=== PATIENT | male | born 1955 | race African-American/Black ===

== ENCOUNTER 2022-10-20 11:20 | Inpatient (IN) | payer MEDICAID ==
[~2022-10-20] VITALS: Ht 175.3 cm; Wt 81.2 kg
[2022-10-20 13:11] LABS: BASOPHILS % 0.9 % (0.0-2.0); EOSINOPHILS % 0.5 % (0.0-5.0); HEMATOCRIT. 37.5 % (42.0-52.0); HEMOGLOBIN. 12.2 g/dL (14.0-18.0); LYMPHOCYTES % 14.3 % (20.0-50.0); MEAN CORPUSCULAR HEMOGLOBIN 25.2 pg (28.0-32.0); MEAN CORPUSCULAR VOLUME 77.4 fL (80.0-94.0); MEAN PLATELET VOLUME 10.6 fl (7.4-10.4); MONOCYTES % 7.4 % (2.0-8.0); NEUTROPHILS % 76.9 % (40.0-76.0); PLATELET 141 x1000/uL (130-400); RED BLOOD CELL COUNT 4.85 mill/uL (4.7-6.1); RED CELL DISTRIBUTION WIDTH 17.5 % (11.6-14.6)
[2022-10-20 13:26] LABS: CHLORIDE 102 mEq/L (98-107)
[2022-10-20] MEDS ORDERED: TRAMADOL 50MG TABLET PO PRN (15:30)
[2022-10-20] MEDS: THIAMINE HCL 100MG TABLET PO SCH (15:30)
[2022-10-20] MEDS: MULTIVITAMINS,THER W-MINERALS TABLET PO SCH (15:30)
[2022-10-20] MEDS ORDERED: CLONIDINE 0.1MG TABLET PO PRN (15:30)
[2022-10-20] MEDS ORDERED: ONDANSETRON HCL 4MG/2ML INJ IV PRN (15:30)
[2022-10-20] MEDS ORDERED: ACETAMINOPHEN 325MG TABLET PO PRN (15:30)
[2022-10-20] MEDS ORDERED: NALOXONE HCL 0.4MG/ML VIAL IV PRN (16:00)
[2022-10-20] MEDS: ENOXAPARIN 40MG/0.4ML SYR SUBCUT SCH (16:42)
[2022-10-20 23:30] VITALS: BP 130/90
[2022-10-21] VITALS: BP 130/90
[2022-10-21 04:00] VITALS: BP 100/50
[2022-10-21 08:00] VITALS: BP 132/84
[2022-10-21 08:05] LABS: BASOPHILS % 1.1 % (0.0-2.0); EOSINOPHILS % 3.3 % (0.0-5.0); HEMATOCRIT. 34.4 % (42.0-52.0); HEMOGLOBIN. 11.1 g/dL (14.0-18.0); LYMPHOCYTES % 29.8 % (20.0-50.0); MEAN CORPUSCULAR HEMOGLOBIN 24.9 pg (28.0-32.0); MEAN CORPUSCULAR VOLUME 77.3 fL (80.0-94.0); MEAN PLATELET VOLUME 10.9 fl (7.4-10.4); MONOCYTES % 9.5 % (2.0-8.0); NEUTROPHILS % 56.3 % (40.0-76.0); PLATELET 129 x1000/uL (130-400); RED BLOOD CELL COUNT 4.45 mill/uL (4.7-6.1); RED CELL DISTRIBUTION WIDTH 16.9 % (11.6-14.6)
[2022-10-21] MEDS: THIAMINE HCL 100MG TABLET PO SCH (08:21)
[2022-10-21] MEDS: MULTIVITAMINS,THER W-MINERALS TABLET PO SCH (08:21)
[2022-10-21 09:55] LABS: CHLORIDE 104 mEq/L (98-107)
[2022-10-21 10:04] LABS: HDL CHOLESTEROL 34 mg/dL (40-59); LDL CHOLESTEROL 68 mg/dL (5-100)
[2022-10-21] MEDS: ENOXAPARIN 40MG/0.4ML SYR SUBCUT SCH (16:00)
[2022-10-21 19:43] VITALS: BP 130/90
[2022-10-21 20:00] VITALS: BP 130/90
[2022-10-22] VITALS (7 sets, daily range): BP systolic 120–140; BP diastolic 76–92
[2022-10-22] MEDS: MULTIVITAMINS,THER W-MINERALS TABLET PO SCH (08:34)
[2022-10-22] MEDS: THIAMINE HCL 100MG TABLET PO SCH (08:34)
[2022-10-22] MEDS: ENOXAPARIN 40MG/0.4ML SYR SUBCUT SCH (16:44)
[2022-10-23] VITALS: BP 124/68
[2022-10-23 04:00] VITALS: BP 118/78
[2022-10-23 08:00] VITALS: BP 139/84
[2022-10-23] MEDS: MULTIVITAMINS,THER W-MINERALS TABLET PO SCH (09:08)
[2022-10-23] MEDS: THIAMINE HCL 100MG TABLET PO SCH (09:09)
[2022-10-23] MEDS ORDERED: ASPI-1497 PO (11:22)
[2022-10-23] MEDS ORDERED: DILT240C94 PO (11:22)
[2022-10-23] MEDS ORDERED: LISI2.5T47 MT (11:22)
[2022-10-23] MEDS ORDERED: METF-414 MT (11:25)
[2022-10-23] MEDS ORDERED: CHOL400D7 MT (11:25)
[2022-10-23 12:00] VITALS: BP 120/86
[2022-10-23] MEDS ORDERED: *PATIENT'S OWN MEDICATION STORAGE XX SCH (13:15)
[2022-10-23 16:00] VITALS: BP 144/86
[2022-10-23] MEDS: ENOXAPARIN 40MG/0.4ML SYR SUBCUT SCH (17:12)
[2022-10-23 20:00] VITALS: BP 124/82
[2022-10-24 08:00] VITALS: BP 133/87
[2022-10-24] MEDS: MULTIVITAMINS,THER W-MINERALS TABLET PO SCH (08:56)
[2022-10-24] MEDS: THIAMINE HCL 100MG TABLET PO SCH (08:56)
[2022-10-24] MEDS: METFORMIN HCL 500MG TABLET PO SCH ×2 (09:47→17:00)
[2022-10-24] MEDS: ASPIRIN 81MG EC TABLET PO SCH (09:47)
[2022-10-24] MEDS: LISINOPRIL 2.5MG TABLET PO SCH (09:48)
[2022-10-24] MEDS: BISACODYL 10MG SUPP PR PRN (09:53)
[2022-10-24 12:00] VITALS: BP 153/85
[2022-10-24] MEDS: DILTIAZEM HCL 120MG CAPSULE ER 24HR PO SCH (13:29)
[2022-10-24 16:00] VITALS: BP 138/86
[2022-10-24] MEDS: ENOXAPARIN 40MG/0.4ML SYR SUBCUT SCH (17:45)
[2022-10-24 20:00] VITALS: BP 129/65
[2022-10-25] VITALS: BP 131/84
[2022-10-25 04:00] VITALS: BP 127/82
[2022-10-25 07:50] VITALS: BP 125/71
[2022-10-25] MEDS: METFORMIN HCL 500MG TABLET PO SCH ×2 (08:57→16:33)
[2022-10-25] MEDS: LISINOPRIL 2.5MG TABLET PO SCH (08:57)
[2022-10-25] MEDS: THIAMINE HCL 100MG TABLET PO SCH (08:57)
[2022-10-25] MEDS: MULTIVITAMINS,THER W-MINERALS TABLET PO SCH (08:57)
[2022-10-25] MEDS: DILTIAZEM HCL 120MG CAPSULE ER 24HR PO SCH (08:58)
[2022-10-25] MEDS: ASPIRIN 81MG EC TABLET PO SCH (08:58)
[2022-10-25] MEDS: BISACODYL 10MG SUPP PR PRN (11:00)
[2022-10-25 11:44] VITALS: BP 131/89
[2022-10-25] MEDS: ENOXAPARIN 40MG/0.4ML SYR SUBCUT SCH (16:00)
[2022-10-25 16:02] VITALS: BP 134/83
[2022-10-25 20:00] VITALS: BP 127/78
[2022-10-26] VITALS: BP 117/68
[2022-10-26 07:51] VITALS: BP 131/75
[2022-10-26] MEDS: THIAMINE HCL 100MG TABLET PO SCH (09:23)
[2022-10-26] MEDS: ASPIRIN 81MG EC TABLET PO SCH (09:23)
[2022-10-26] MEDS: METFORMIN HCL 500MG TABLET PO SCH ×2 (09:23→18:25)
[2022-10-26] MEDS: MULTIVITAMINS,THER W-MINERALS TABLET PO SCH (09:24)
[2022-10-26] MEDS: LISINOPRIL 2.5MG TABLET PO SCH (09:24)
[2022-10-26] MEDS: DILTIAZEM HCL 120MG CAPSULE ER 24HR PO SCH (09:32)
[2022-10-26] MEDS: BISACODYL 10MG SUPP PR PRN (09:32)
[2022-10-26 11:28] VITALS: BP 138/88
[2022-10-26 15:59] VITALS: BP 127/89
[2022-10-26] MEDS: ENOXAPARIN 40MG/0.4ML SYR SUBCUT SCH (16:00)
[2022-10-26 20:00] VITALS: BP 126/75
[2022-10-27 07:29] LABS: HEMATOCRIT 35.7 % (42.0-52.0); HEMOGLOBIN 11.5 g/dL (14.0-18.0); MEAN CORPUSCULAR VOLUME 77.8 fL (80.0-94.0); PLATELET 179 x1000/uL (130-400); RED BLOOD CELL COUNT 4.59 mill/uL (4.7-6.1); RED CELL DISTRIBUTION WIDTH 17.1 % (11.6-14.6)
[2022-10-27 07:55] LABS: CHLORIDE 105 mEq/L (98-107)
[2022-10-27 08:00] VITALS: BP 138/72
[2022-10-27] MEDS: LISINOPRIL 2.5MG TABLET PO SCH (09:29)
[2022-10-27] MEDS: ASPIRIN 81MG EC TABLET PO SCH (09:29)
[2022-10-27] MEDS: DILTIAZEM HCL 120MG CAPSULE ER 24HR PO SCH (09:30)
[2022-10-27] MEDS: THIAMINE HCL 100MG TABLET PO SCH (09:30)
[2022-10-27] MEDS: MULTIVITAMINS,THER W-MINERALS TABLET PO SCH (09:31)
[2022-10-27] MEDS: METFORMIN HCL 500MG TABLET PO SCH ×2 (09:32→17:38)
[2022-10-27 12:00] VITALS: BP 132/68
[2022-10-27 16:00] VITALS: BP 132/64
[2022-10-27] MEDS: ENOXAPARIN 40MG/0.4ML SYR SUBCUT SCH (17:38)
[2022-10-27 20:00] VITALS: BP 124/77
[2022-10-28 08:10] VITALS: BP 119/78
[2022-10-28] MEDS: THIAMINE HCL 100MG TABLET PO SCH (09:40)
[2022-10-28] MEDS: MULTIVITAMINS,THER W-MINERALS TABLET PO SCH (09:40)
[2022-10-28] MEDS: METFORMIN HCL 500MG TABLET PO SCH ×2 (09:40→16:54)
[2022-10-28] MEDS: ASPIRIN 81MG EC TABLET PO SCH (09:41)
[2022-10-28] MEDS: BISACODYL 10MG SUPP PR PRN (09:42)
[2022-10-28] MEDS: DOCUSATE SODIUM 100MG CAPSULE PO PRN (09:42)
[2022-10-28] MEDS: DILTIAZEM HCL 120MG CAPSULE ER 24HR PO SCH (09:46)
[2022-10-28] MEDS: LISINOPRIL 2.5MG TABLET PO SCH (09:48)
[2022-10-28 12:14] VITALS: BP 122/71
[2022-10-28] MEDS: ENOXAPARIN 40MG/0.4ML SYR SUBCUT SCH (16:54)
[2022-10-28 16:55] VITALS: BP 127/72
[2022-10-28 20:00] VITALS: BP 135/70
[2022-10-29 04:00] VITALS: BP 123/79
[2022-10-29 08:00] VITALS: BP 118/75
[2022-10-29] MEDS: DOCUSATE SODIUM 100MG CAPSULE PO PRN (09:15)
[2022-10-29] MEDS: ASPIRIN 81MG EC TABLET PO SCH (09:15)
[2022-10-29] MEDS: MULTIVITAMINS,THER W-MINERALS TABLET PO SCH (09:16)
[2022-10-29] MEDS: METFORMIN HCL 500MG TABLET PO SCH ×2 (09:16→17:28)
[2022-10-29] MEDS: DILTIAZEM HCL 120MG CAPSULE ER 24HR PO SCH (09:17)
[2022-10-29] MEDS: LISINOPRIL 2.5MG TABLET PO SCH (09:26)
[2022-10-29] MEDS: BISACODYL 10MG SUPP PR PRN (09:27)
[2022-10-29] MEDS: THIAMINE HCL 100MG TABLET PO SCH (09:27)
[2022-10-29 12:00] VITALS: BP 132/91
[2022-10-29 16:00] VITALS: BP 134/81
[2022-10-29] MEDS: ENOXAPARIN 40MG/0.4ML SYR SUBCUT SCH (17:29)
[2022-10-29 20:00] VITALS: BP 137/77
[2022-10-30 08:00] VITALS: BP 127/71
[2022-10-30] MEDS: METFORMIN HCL 500MG TABLET PO SCH ×2 (09:18→17:31)
[2022-10-30] MEDS: THIAMINE HCL 100MG TABLET PO SCH (09:18)
[2022-10-30] MEDS: LISINOPRIL 2.5MG TABLET PO SCH (09:19)
[2022-10-30] MEDS: BISACODYL 10MG SUPP PR PRN (09:19)
[2022-10-30] MEDS: DILTIAZEM HCL 120MG CAPSULE ER 24HR PO SCH (09:19)
[2022-10-30] MEDS: ASPIRIN 81MG EC TABLET PO SCH (09:19)
[2022-10-30] MEDS: MULTIVITAMINS,THER W-MINERALS TABLET PO SCH (09:19)
[2022-10-30 12:00] VITALS: BP 117/72
[2022-10-30 16:00] VITALS: BP 131/82
[2022-10-30] MEDS: ENOXAPARIN 40MG/0.4ML SYR SUBCUT SCH (17:31)
[2022-10-30 20:00] VITALS: BP 130/82
[2022-10-31 08:00] VITALS: BP 128/78
[2022-10-31] MEDS: ASPIRIN 81MG EC TABLET PO SCH (09:07)
[2022-10-31] MEDS: METFORMIN HCL 500MG TABLET PO SCH ×2 (09:07→18:47)
[2022-10-31] MEDS: DILTIAZEM HCL 120MG CAPSULE ER 24HR PO SCH (09:07)
[2022-10-31] MEDS: MULTIVITAMINS,THER W-MINERALS TABLET PO SCH (09:08)
[2022-10-31] MEDS: THIAMINE HCL 100MG TABLET PO SCH (09:08)
[2022-10-31] MEDS: LISINOPRIL 2.5MG TABLET PO SCH (09:08)
[2022-10-31] MEDS: MAGNESIUM/ALUMINUM HYDROXIDE/SIMETHICONE 30ML UDC PO PRN (09:09)
[2022-10-31 12:00] VITALS: BP 128/72
[2022-10-31] MEDS: BISACODYL 10MG SUPP PR PRN (12:10)
[2022-10-31] MEDS: DOCUSATE SODIUM 100MG CAPSULE PO PRN (14:23)
[2022-10-31 16:00] VITALS: BP 119/68
[2022-10-31] MEDS: ENOXAPARIN 40MG/0.4ML SYR SUBCUT SCH (16:00)
[2022-10-31 20:00] VITALS: BP 140/70
[2022-11-01 04:00] VITALS: BP 130/52
[2022-11-01 08:01] VITALS: BP 119/73
[2022-11-01] MEDS: DILTIAZEM HCL 120MG CAPSULE ER 24HR PO SCH (09:32)
[2022-11-01] MEDS: LISINOPRIL 2.5MG TABLET PO SCH (09:33)
[2022-11-01] MEDS: THIAMINE HCL 100MG TABLET PO SCH (09:33)
[2022-11-01] MEDS: MAGNESIUM/ALUMINUM HYDROXIDE/SIMETHICONE 30ML UDC PO PRN (09:33)
[2022-11-01] MEDS: MULTIVITAMINS,THER W-MINERALS TABLET PO SCH (09:33)
[2022-11-01] MEDS: ASPIRIN 81MG EC TABLET PO SCH (09:33)
[2022-11-01] MEDS: METFORMIN HCL 500MG TABLET PO SCH ×2 (09:33→18:50)
[2022-11-01 12:00] VITALS: BP 120/74
[2022-11-01] MEDS: BISACODYL 10MG SUPP PR PRN (14:25)
[2022-11-01 16:00] VITALS: BP 123/74
[2022-11-01] MEDS: ENOXAPARIN 40MG/0.4ML SYR SUBCUT SCH (16:00)
[2022-11-02 10:17] LABS: CHLORIDE 103 mEq/L (98-107)
[2022-11-02] MEDS: ASPIRIN 81MG EC TABLET PO SCH (10:28)
[2022-11-02] MEDS: MULTIVITAMINS,THER W-MINERALS TABLET PO SCH (10:28)
[2022-11-02] MEDS: METFORMIN HCL 500MG TABLET PO SCH ×2 (10:28→18:59)
[2022-11-02] MEDS: LISINOPRIL 2.5MG TABLET PO SCH (10:28)
[2022-11-02] MEDS: DILTIAZEM HCL 120MG CAPSULE ER 24HR PO SCH (10:29)
[2022-11-02] MEDS: THIAMINE HCL 100MG TABLET PO SCH (10:34)
[2022-11-02] MEDS: GUAIFENESIN 200MG/10ML SUGAR FREE UDC PO PRN ×2 (10:34→18:59)
[2022-11-02] MEDS: BISACODYL 10MG SUPP PR PRN (10:34)
[2022-11-02] MEDS: ENOXAPARIN 40MG/0.4ML SYR SUBCUT SCH (16:00)
[2022-11-02 20:00] VITALS: BP 113/68
[2022-11-03] VITALS: BP 118/62
[2022-11-03 08:00] VITALS: BP 134/73
[2022-11-03] MEDS: THIAMINE HCL 100MG TABLET PO SCH (08:05)
[2022-11-03] MEDS: ASPIRIN 81MG EC TABLET PO SCH (08:06)
[2022-11-03] MEDS: METFORMIN HCL 500MG TABLET PO SCH ×2 (08:06→17:31)
[2022-11-03] MEDS: DILTIAZEM HCL 120MG CAPSULE ER 24HR PO SCH (08:06)
[2022-11-03] MEDS: MULTIVITAMINS,THER W-MINERALS TABLET PO SCH (08:06)
[2022-11-03] MEDS: LISINOPRIL 2.5MG TABLET PO SCH (08:06)
[2022-11-03] MEDS: GUAIFENESIN 200MG/10ML SUGAR FREE UDC PO PRN (08:13)
[2022-11-03 12:00] VITALS: BP 121/70
[2022-11-03 16:00] VITALS: BP 119/71
[2022-11-03] MEDS: ENOXAPARIN 40MG/0.4ML SYR SUBCUT SCH (16:00)
[2022-11-03] MEDS: BISACODYL 10MG SUPP PR PRN (16:20)
[2022-11-03 20:00] VITALS: BP 110/74
[2022-11-04] VITALS: BP 112/76
[2022-11-04 04:00] VITALS: BP 116/72
[2022-11-04 08:00] VITALS: BP 142/87
[2022-11-04] MEDS: METFORMIN HCL 500MG TABLET PO SCH ×2 (08:43→17:25)
[2022-11-04] MEDS: THIAMINE HCL 100MG TABLET PO SCH (08:43)
[2022-11-04] MEDS: ASPIRIN 81MG EC TABLET PO SCH (08:43)
[2022-11-04] MEDS: LISINOPRIL 2.5MG TABLET PO SCH (08:43)
[2022-11-04] MEDS: MULTIVITAMINS,THER W-MINERALS TABLET PO SCH (08:43)
[2022-11-04] MEDS: DILTIAZEM HCL 120MG CAPSULE ER 24HR PO SCH (08:44)
[2022-11-04] MEDS: MAGNESIUM/ALUMINUM HYDROXIDE/SIMETHICONE 30ML UDC PO PRN (10:04)
[2022-11-04] MEDS: GUAIFENESIN 200MG/10ML SUGAR FREE UDC PO PRN (10:05)
[2022-11-04 12:00] VITALS: BP 143/78
[2022-11-04] MEDS: ENOXAPARIN 40MG/0.4ML SYR SUBCUT SCH (16:00)
[2022-11-05 08:00] VITALS: BP 131/81
[2022-11-05] MEDS: METFORMIN HCL 500MG TABLET PO SCH ×2 (08:16→17:30)
[2022-11-05] MEDS: THIAMINE HCL 100MG TABLET PO SCH (08:16)
[2022-11-05] MEDS: DILTIAZEM HCL 120MG CAPSULE ER 24HR PO SCH (08:17)
[2022-11-05] MEDS: MULTIVITAMINS,THER W-MINERALS TABLET PO SCH (08:17)
[2022-11-05] MEDS: LISINOPRIL 2.5MG TABLET PO SCH (08:17)
[2022-11-05] MEDS: ASPIRIN 81MG EC TABLET PO SCH (08:18)
[2022-11-05] MEDS: BISACODYL 10MG SUPP PR PRN (13:00)
[2022-11-05 16:00] VITALS: BP 117/77
[2022-11-05] MEDS: ENOXAPARIN 40MG/0.4ML SYR SUBCUT SCH (16:00)
[2022-11-05 20:00] VITALS: BP 111/71
[2022-11-06 04:00] VITALS: BP 115/52
[2022-11-06 08:00] VITALS: BP 136/80
[2022-11-06] MEDS: LISINOPRIL 2.5MG TABLET PO SCH (10:14)
[2022-11-06] MEDS: METFORMIN HCL 500MG TABLET PO SCH ×2 (10:14→17:34)
[2022-11-06] MEDS: DILTIAZEM HCL 120MG CAPSULE ER 24HR PO SCH (10:14)
[2022-11-06] MEDS: MULTIVITAMINS,THER W-MINERALS TABLET PO SCH (10:14)
[2022-11-06] MEDS: ASPIRIN 81MG EC TABLET PO SCH (10:14)
[2022-11-06] MEDS: THIAMINE HCL 100MG TABLET PO SCH (10:15)
[2022-11-06 12:00] VITALS: BP 124/63
[2022-11-06 16:00] VITALS: BP 122/72
[2022-11-06] MEDS: ENOXAPARIN 40MG/0.4ML SYR SUBCUT SCH (16:00)
[2022-11-06 20:00] VITALS: BP 103/75
[2022-11-07 08:00] VITALS: BP 122/83
[2022-11-07] MEDS: ASPIRIN 81MG EC TABLET PO SCH (08:51)
[2022-11-07] MEDS: METFORMIN HCL 500MG TABLET PO SCH ×2 (08:51→17:52)
[2022-11-07] MEDS: MULTIVITAMINS,THER W-MINERALS TABLET PO SCH (08:51)
[2022-11-07] MEDS: THIAMINE HCL 100MG TABLET PO SCH (08:51)
[2022-11-07] MEDS: DILTIAZEM HCL 120MG CAPSULE ER 24HR PO SCH (08:57)
[2022-11-07] MEDS: LISINOPRIL 2.5MG TABLET PO SCH (08:57)
[2022-11-07] MEDS: BISACODYL 10MG SUPP PR PRN (10:59)
[2022-11-07 12:00] VITALS: BP 121/78
[2022-11-07 16:00] VITALS: BP 126/72
[2022-11-07] MEDS: ENOXAPARIN 40MG/0.4ML SYR SUBCUT SCH (16:00)
[2022-11-07 20:00] VITALS: BP 120/61
[2022-11-08 04:00] VITALS: BP 105/72
[2022-11-08 08:00] VITALS: BP 135/79
[2022-11-08] MEDS: METFORMIN HCL 500MG TABLET PO SCH ×2 (10:52→17:24)
[2022-11-08] MEDS: THIAMINE HCL 100MG TABLET PO SCH (10:52)
[2022-11-08] MEDS: MULTIVITAMINS,THER W-MINERALS TABLET PO SCH (10:52)
[2022-11-08] MEDS: LISINOPRIL 2.5MG TABLET PO SCH (10:53)
[2022-11-08] MEDS: GUAIFENESIN 200MG/10ML SUGAR FREE UDC PO PRN ×2 (10:53→17:24)
[2022-11-08] MEDS: ASPIRIN 81MG EC TABLET PO SCH (10:53)
[2022-11-08] MEDS: BISACODYL 10MG SUPP PR PRN (10:56)
[2022-11-08] MEDS: DILTIAZEM HCL 120MG CAPSULE ER 24HR PO SCH (10:56)
[2022-11-08 12:00] VITALS: BP 129/76
[2022-11-08] MEDS: ENOXAPARIN 40MG/0.4ML SYR SUBCUT SCH (16:00)
[2022-11-08 20:00] VITALS: BP 110/70
[2022-11-09 08:00] VITALS: BP 125/80
[2022-11-09 08:44] LABS: HEMATOCRIT 36.1 % (42.0-52.0); HEMOGLOBIN 11.6 g/dL (14.0-18.0); MEAN CORPUSCULAR HEMOGLOBIN 24.8 pg (28.0-32.0); MEAN CORPUSCULAR VOLUME 77.1 fL (80.0-94.0); PLATELET 256 x1000/uL (130-400); RED BLOOD CELL COUNT 4.68 mill/uL (4.7-6.1); RED CELL DISTRIBUTION WIDTH 17.4 % (11.6-14.6)
[2022-11-09] MEDS: ASPIRIN 81MG EC TABLET PO SCH (08:48)
[2022-11-09] MEDS: THIAMINE HCL 100MG TABLET PO SCH (08:48)
[2022-11-09] MEDS: MULTIVITAMINS,THER W-MINERALS TABLET PO SCH (08:49)
[2022-11-09] MEDS: METFORMIN HCL 500MG TABLET PO SCH ×2 (08:49→16:05)
[2022-11-09] MEDS: LISINOPRIL 2.5MG TABLET PO SCH (08:49)
[2022-11-09] MEDS: DILTIAZEM HCL 120MG CAPSULE ER 24HR PO SCH (08:49)
[2022-11-09] MEDS: GUAIFENESIN 200MG/10ML SUGAR FREE UDC PO PRN (08:50)
[2022-11-09 08:59] LABS: CHLORIDE 103 mEq/L (98-107)
[2022-11-09 12:00] VITALS: BP 118/78
[2022-11-09 16:00] VITALS: BP 126/71
[2022-11-09] MEDS: ENOXAPARIN 40MG/0.4ML SYR SUBCUT SCH (16:00)
[2022-11-09 20:00] VITALS: BP 121/71
[2022-11-10 04:00] VITALS: BP 125/75
[2022-11-10 08:00] VITALS: BP 115/78
[2022-11-10] MEDS: BISACODYL 10MG SUPP PR PRN (09:51)
[2022-11-10] MEDS: THIAMINE HCL 100MG TABLET PO SCH (09:52)
[2022-11-10] MEDS: METFORMIN HCL 500MG TABLET PO SCH ×2 (09:52→17:29)
[2022-11-10] MEDS: ASPIRIN 81MG EC TABLET PO SCH (09:52)
[2022-11-10] MEDS: MULTIVITAMINS,THER W-MINERALS TABLET PO SCH (09:52)
[2022-11-10] MEDS: LISINOPRIL 2.5MG TABLET PO SCH (09:53)
[2022-11-10] MEDS: GUAIFENESIN 200MG/10ML SUGAR FREE UDC PO PRN ×2 (09:54→17:32)
[2022-11-10] MEDS: DILTIAZEM HCL 120MG CAPSULE ER 24HR PO SCH (09:54)
[2022-11-10 12:00] VITALS: BP 139/76
[2022-11-10 16:00] VITALS: BP 124/78
[2022-11-10] MEDS: ENOXAPARIN 40MG/0.4ML SYR SUBCUT SCH (16:00)
[2022-11-11 04:00] VITALS: BP 146/83
[2022-11-11 08:00] VITALS: BP 133/83
[2022-11-11] MEDS: ASPIRIN 81MG EC TABLET PO SCH (08:45)
[2022-11-11] MEDS: DILTIAZEM HCL 120MG CAPSULE ER 24HR PO SCH (08:45)
[2022-11-11] MEDS: THIAMINE HCL 100MG TABLET PO SCH (08:45)
[2022-11-11] MEDS: GUAIFENESIN 200MG/10ML SUGAR FREE UDC PO PRN (08:45)
[2022-11-11] MEDS: MULTIVITAMINS,THER W-MINERALS TABLET PO SCH (08:46)
[2022-11-11] MEDS: LISINOPRIL 2.5MG TABLET PO SCH (08:46)
[2022-11-11] MEDS: METFORMIN HCL 500MG TABLET PO SCH ×2 (08:46→16:51)
[2022-11-11 12:00] VITALS: BP 140/80
[2022-11-11 16:00] VITALS: BP 130/78
[2022-11-11] MEDS: ENOXAPARIN 40MG/0.4ML SYR SUBCUT SCH (16:00)
[2022-11-11 20:00] VITALS: BP 110/63
[2022-11-12 08:00] VITALS: BP 143/88
[2022-11-12] MEDS: THIAMINE HCL 100MG TABLET PO SCH (09:42)
[2022-11-12] MEDS: LISINOPRIL 2.5MG TABLET PO SCH (09:42)
[2022-11-12] MEDS: DILTIAZEM HCL 120MG CAPSULE ER 24HR PO SCH (09:42)
[2022-11-12] MEDS: METFORMIN HCL 500MG TABLET PO SCH ×2 (09:42→16:52)
[2022-11-12] MEDS: ASPIRIN 81MG EC TABLET PO SCH (09:43)
[2022-11-12] MEDS: MULTIVITAMINS,THER W-MINERALS TABLET PO SCH (09:43)
[2022-11-12] MEDS: GUAIFENESIN 200MG/10ML SUGAR FREE UDC PO PRN (09:49)
[2022-11-12 12:27] VITALS: BP 128/81
[2022-11-12 16:00] VITALS: BP 141/83
[2022-11-12] MEDS: ENOXAPARIN 40MG/0.4ML SYR SUBCUT SCH (16:00)
[2022-11-12 19:37] VITALS: BP 125/81
[2022-11-12 20:00] VITALS: BP 125/86
[2022-11-13 04:00] VITALS: BP 123/82
[2022-11-13 04:38] VITALS: BP 123/82
== END 2022-11-13 07:36 | DRG 421 ==
LOC: ER 11:20 → 6EST 13:45 → ENRESERV 23:19
PROVIDERS: ADMIT Hospitalist; ATTEND Hospitalist
DX: R62.7 Adult failure to thrive (principal); E11.9 Type 2 diabetes mellitus without complications; E78.00 Pure hypercholesterolemia, unspecified; Z20.822 Contact with and (suspected) exposure to COVID-19; I10 Essential (primary) hypertension; Z86.73 Personal history of transient ischemic attack (TIA), and cerebral infarction without residual deficits; Z99.3 Dependence on wheelchair
CPT/HCPCS: 36415; 80048; 80053; 80061; 82962; 85025; 85027; 87426; 93970; 97112; 97162; 97166; 97530; 97535; 99285; J1650